=== PATIENT | female | born 1955 | race Caucasian/White ===

== ENCOUNTER 2016-10-15 17:24 | Emergency (ER) | payer OTHER ==
[~2016-10-15] VITALS: Ht 175.3 cm; Wt 63.6 kg
[~2016-10-15 17:24] MED LIST: OXYC1TAB24 PO; OXYC5TAB72 PO
[2016-10-15 17:28] VITALS: BP 132/83; PULSE 100; RESP 20; O2SAT 98
--- NOTE | 2016-10-15 20:57 | ED.REPORT ---
HPI-Extremity Problem Lower Date of Service Oct 15, 2016 ED Provider: Dr. Augustine 61 year old female presents with sharp anterior R hip pain for 4 weeks. Pt denies any known injury. The pain is constant but worse with movement. The pain is also worse in the cold weather. She has been using gabapentin and Ibuprofen with minimal relief. Pt denies N/V/D and any other symptoms. Pt has an appointment Nov [address] Biggs for this. Pt was seen at urgent care for this 09/18/16 which showed no acute disease. Nursing Notes Stated Complaint: RIGHT HIP PAIN Chief Complaint: Extremity Trauma Nursing Notes Reviewed: Yes Allergies: Coded Allergies: acetaminophen (Verified Allergy, Unknown, RASH, 01/19/16) hydrocodone (Verified Allergy, Unknown, RASH, 01/19/16) Scheduled PRN oxyCODONE (oxyCODONE) 5 Mg Tablet 5 MG PO Q4H PRN PRN For Pain oxyCODONE-Acetaminophen 5-325 mg (oxyCODONE-Acetaminophen 5-325 mg) 1 Each Tablet 1-2 TAB PO Q6H PRN PRN For Pain oxyCODONE-Acetaminophen 5-325 mg (oxyCODONE-Acetaminophen 5-325 mg) 1 Each Tablet 1 TAB PO Q6H PRN PRN For Pain General Time Seen by MD: 20:56 Chief Complaint Other (R hip pain) Hx Obtained From: Patient Arrived By: Walk-in Onset Occurred: More than a week ago... (4 weeks) Symptom Duration: Since onset Location: : Hip right Quality: Painful Severity: Current: Moderate Associated with: Denies: Unable to bear weight, Unable to move joint, Unable to walk Exacerbated by: Movement Recent Healthcare: Recent doctor visit Past Medical History Past Medical History Notes: Urgent Care visits x2 07/21 and 07/24/2015 for same complaint, records requested Past Medical History Kidney stones Admit for severe pneumonia 2004 HTN Migraines Acute mono Past Surgical History Hysterectomy 1991 Tonsillectomy at age 31 Kidney stone removal 94, 99, 1999 Laparoscopic cholecystectomy Family History Noncontributory Smoking History Former Smoker Social History Alcohol Use: "Social" Other Social History: Good social support, , Local resident Ambulatory Status Independent Review of Systems Basic Review of Systems Eyes: Vision NL, No discharge ENT: Hearing NL, No pain, No nasal congestion, No pharyngeal pain Respiratory: No shortness of breath, No cough, No wheeze Cardiovascular: No chest pain, No dyspnea on exertion, No orthopnea, No parox noct dyspnea, No palpitations Psychiatric: Normal thought content Constitutional: Denies: Chills, Fever Musculoskeletal: Reports: Joint pain, Denies: Extremity pain, Joint swelling, Neck pain Skin: Denies Diaphoresis, Denies Rash Neurologic: Denies: Change LOC, Numbness, Problem walking Complete sys rev & neg: except as marked. Physical Exam Initial Vital Signs Vital Signs (First) Date Time Temp Pulse Resp B/P Pulse Ox O2 Delivery O2 Flow Rate FiO2 10/15/16 17:28 36.7 100 20 132/83 98 Room Air Initial VS: Reviewed, Vital signs abnormal General/Constitutional: Well-developed, Well-nourished Head / Eyes: Atraumatic, Normocephalic, PERRL ENT: Conjunctiva normal, No scleral icterus Neck: Full range of motion Respiratory: No respiratory distress Skin: Warm, Dry, No cyanosis Neurologic: Alert, Oriented, Nonfocal Psychiatric: Mood/affect normal, Behavior normal, Normal thought content Lower Extremity / Pelvis / MS: Atraumatic, Full range of motion, No erythema, Neurologic intact, Vascular intact (Good DP pulses), No edema Pain with abduction. Good cap refill. No masses. Re-Eval/Medical Decision Med Decision/Clinical Course The patient has right hip pain and was told she has arthritis however her x-ray does not show any significant arthritis. Her examination is more consistent with a groin strain. Differential diagnoses considered were osteoarthritis, septic arthritis, groin pull, or other intra-articular process. This is a chronic problem and patient has follow-up with her primary care physician. Source of Hx: Old records (old imaging reviewed. ) Re-Evaluation/Progress : Time of Eval: 22:03 Re-Evaluation/Progress Note: Discussed plan for discharge and follow up. All questions addressed. Counseled Regarding: Diagnosis, Need for follow-up, When/why to return to ED Discharge & Departure Impression: Primary Impression: Right groin pain Disposition: Home Discharge Condition All VS Reviewed: Yes Condition: Improved Additional Instructions: Activity as tolerated by your pain. You should call your doctor tomorrow to see if you can get a sooner appointment. You need to see your doctor for future pain management. For pain take Ibuprofen as directed. For severe pain, take Percocet as directed. Use the pain medication sparingly. Referrals: Deniz Biggs MD (PCP) Scribe Attestation Portions of this note were transcribed by Khadijah Cruz. I, (Dr. Augustine) personally performed the history, physical exam and medical decision-making; I reviewed and confirmed the accuracy of the information in the transcribed note. Signed by: Khadijah Cruz. 10/15/2016, 0880 copies to: Deniz Biggs MD, Jena M MD Oct 15, 2016 20:57 Khadijah Crzu Oct 15, 2016 21:57
[2016-10-15] MEDS ORDERED: OXYC1TAB24 PO (21:55)
[2016-10-15] MEDS ORDERED: HYDROmorphone 0.5 mg/0.5 mL iSecure Syringe IM ONE (21:55)
[2016-10-15 22:07] VITALS: BP 120/63; PULSE 84; RESP 20; O2SAT 98
== END 2016-10-15 22:07 | disposition home or self-care (01) ==
LOC: SED 17:24
DX: R10.31 Right lower quadrant pain (principal); I10 Essential (primary) hypertension; Z87.442 Personal history of urinary calculi; Z87.01 Personal history of pneumonia (recurrent); Z90.49 Acquired absence of other specified parts of digestive tract; Z87.891 Personal history of nicotine dependence; Z88.6 Allergy status to analgesic agent; Z88.5 Allergy status to narcotic agent
CPT/HCPCS: 96372; 99283; J1170

== ENCOUNTER 2016-11-26 19:33 | Emergency (ER) | payer OTHER ==
[~2016-11-26] VITALS: Ht 175.3 cm; Wt 63.6 kg
[2016-11-26 19:42] VITALS: BP 140/85; PULSE 76; RESP 15; O2SAT 100
--- NOTE | 2016-11-26 21:38 | ED.REPORT ---
HPI-General Illness Date of Service Nov 26, 2016 ED Provider: Ashok Pacheco Patient is a 61 year old female who presents to the ED, referred from urgent care for concern about abdominal aortic aneurysm. She was Complaining of severe back pain that radiates up onset 3 weeks ago that was exacerbated after bending over 2 days ago. She describes her pain as "grinding and popping". Associated symptoms include epigastric pain. She denies numbness, weakness, incontinence, nausea, vomiting, or any other symptoms. She has a history of kidney stones, but states that her pain does not feel like her prior kidney stones. Nursing Notes Stated Complaint: BACK PAIN Chief Complaint: Back Pain or Injury Nursing Notes Reviewed: Yes Allergies: Coded Allergies: hydrocodone (Verified Allergy, Unknown, RASH, 11/26/16) Scheduled PRN Methocarbamol (Robaxin-750) 750 Mg Tablet 1-2 TAB PO QID PRN PRN For Spasm oxyCODONE (oxyCODONE) 5 Mg Tablet 5 MG PO Q4H PRN PRN For Pain oxyCODONE-Acetaminophen 5-325 mg (oxyCODONE-Acetaminophen 5-325 mg) 1 Each Tablet 1-2 TAB PO Q6H PRN PRN For Pain oxyCODONE-Acetaminophen 5-325 mg (oxyCODONE-Acetaminophen 5-325 mg) 1 Each Tablet 1 TAB PO Q6H PRN PRN For Pain oxyCODONE-Acetaminophen 5-325 mg (oxyCODONE-Acetaminophen 5-325 mg) 1 Each Tablet 2 TAB PO Q6H PRN PRN For Pain General Time Seen by MD: 21:38 Chief Complaint Back pain Hx Obtained From: Patient Arrived By: Walk-in Past Medical History Past Medical History Notes: Urgent Care visits x2 07/21 and 07/24/2015 for same complaint, records requested Past Medical History Kidney stones Admit for severe pneumonia 2004 HTN Migraines Acute mono Reports: Cancer (Skin ) Past Surgical History Hysterectomy 1992 Tonsillectomy at age 31 Kidney stone removal x5 Laparoscopic cholecystectomy Bilateral oophorectomy foot fx with screw placed Family History Noncontributory Smoking History Former Smoker Social History Alcohol Use: "Social" Other Social History: Good social support, , Local resident Ambulatory Status Independent Review of Systems Full Review of Systems GI: Reports: Abdominal pain, Denies: Nausea, Vomiting Female: Denies: Incontinence Musculoskeletal: Reports: Back pain Neurologic: Denies: Numbness, Weakness Complete sys rev & neg: except as marked. Physical Exam Vital Signs Vital Signs Date Time Temp Pulse Resp B/P Pulse Ox O2 Delivery O2 Flow Rate FiO2 11/26/16 19:42 36.1 76 15 140/85 100 Room Air General/Constitutional: Well-developed, Well-nourished Head / Eyes: Atraumatic, Normocephalic Respiratory: Breath sounds normal, Clear to auscultation, No respiratory distress Cardiovascular: Regular rate & rhythm, Heart sounds normal Skin: Warm, Dry Neurologic: Alert, Oriented, Nonfocal Psychiatric: Mood/affect normal, Behavior normal, Normal thought content Abdomen: No palpable mass Tenderness/Guarding/Rebound: Positive: Tender epigastric Back: Atraumatic jelly filter tender, guarded, not moving well, spasm perispinal muscles Interpretation & Diagnostics X-Ray Interpretation Xray Interpretation: Mild DJD Study Performed: Throacic Spine Interpretation / Wet Read by: Interpret - ED physician US Abdominal Aorta IMPRESSION: Suspect mild left hydronephrosis, but cannot entirely rule out left parapelvic cysts. No AAA. Status post cholecystectomy. Exam Performed by: Allied health pract Exam Interpreted by: Radiologist Re-Eval/Medical Decision Med Decision/Clinical Course 61-year-old female with thoracic back pain and appears to be musculoskeletal in nature. She has no radiculopathy symptoms. She was referred here out of concern for abdominal aortic aneurysm. Ultrasound was obtained on that basis and no aneurysm found. Her T spines are notable for some degenerative disease but no significant findings. She is discharged home with Percocet, Robaxin, and planned follow up with PCP. Time of Eval: 23:15 Patient Status: Condition improved Re-Evaluation/Progress Note: Discussed imaging results and plan for discharge with close follow up. Patient understands and agrees with plan. All questions addressed at this time. Counseled Regarding: Diagnosis, Lab results, Need for follow-up, When/why to return to ED Discharge & Departure Shift Change Sign-Out Response to Therapy: Improved Primary Impression: Strain of thoracic region Additional Impression: Back pain Disposition: Home Discharge Condition All VS Reviewed: Yes Condition: Improved Patient Instructions: Acute Low Back Pain (ED), Low Back Strain (ED) Additional Instructions: Heat, rest, avoid bending and lifting. Close attention to posture and stay upright. Do not bend over even to hot die picker a light objects. Continue her Celebrex. You may add Robaxin 1-2 tablets four times daily for muscle relaxation. You may add tramadol two tablets four times daily if needed additionally for pain. Follow-up with your doctor in the office. Return if any immediate issues. Referrals: Deniz Biggs MD (PCP) Scribe Attestation Portions of this note were transcribed by Jenny Delatorre. I, Dr. Pulido personally performed the history, physical exam and medical decision-making; I reviewed and confirmed the accuracy of the information in the transcribed note. Signed by: Jenny Delatorre 11/26/16, 1125 copies to: Deniz Biggs MD, Christopher W MD Nov 26, 2016 21:38 JENNY DELATORRE Nov 26, 2016 22:04
[2016-11-26] MEDS ORDERED: Ketorolac 30 mg/mL 2 mL Inj IM ONE (23:00)
[2016-11-26] MEDS ORDERED: METH-313 PO (23:34)
[2016-11-26] MEDS ORDERED: TRAM50TA2 PO (23:34)
[2016-11-26] MEDS ORDERED: OXYC1TAB24 PO (23:38)
--- NOTE | 2016-11-27 10:16 | DRSVH ---
PROCEDURE: X-RAY THORACIC SPINE, 2 VIEWS INDICATIONS: pain thoracic spine TECHNIQUE: 3 views of the thoracic spine were acquired. COMPARISON: None. FINDINGS: Bones: No fractures or dislocations. No suspicious bony lesions. 12 pairs of ribs are noted, and a ppear intact where visualized. Soft tissues: No paravertebral stripe thickening. IMPRESSION: 1. Mild multilevel cervicothoracic disc degeneration. Dictated by: Harjeet Land Colleen Interpreted: Jamal Thompson MD on 11/27/2016 at 9:16 Transcribed by: NEIL on 11/27/2016 at 10:15 Approved by: Paras Thompson M.D. on 11/27/2016 at 16:21
--- NOTE | 2016-11-27 10:18 | DRSVH ---
PROCEDURE: US ABDOMEN INDICATIONS: epigastric pain, ?AAA TECHNIQUE: Real-time scanning was performed of the abdominal and retroperitoneal organs, with image documentatio n. COMPARISON: None. FINDINGS: Liver length: 16.09 cm CHD: 2 mm CBD: 5.60 mm Spleen length: 8.96 cm Right kidney length: 12.89 cm Left kidney length: 10.63 cm Aorta(Proximal): 2.51 cm Aorta(Mid): 1.69 cm, 1.81 cm Aorta(Distal): 1.76 cm RCIA: 1.00 cm LCIA: 9.20 mm Liver: Liver is normal in size and homogeneous in echotexture. Gallbladder: Absent. Biliary ducts: Intrahepatic bile ducts are non-dilated. Extrahepatic bile duct caliber is normal. Normal is 6-7 mm or less in diameter, or 10 mm or less post-cholecystectomy. Pancreas: Visualized portions of the pancreas are sonographically normal. Spleen: Spleen is normal in size and homogeneous in echotexture. Kidneys: Kidneys are normal in size and echotexture. No hydronephrosis or nephrolithiasis. No adilson d masses. Several peripelvic cysts while the left kidney largest measuring roughly 16 mm Aorta: Visualized aorta is normal in caliber at less than 3 cm. Iliacs: Proximal common iliac arteries are normal in caliber at less than 2.5 cm. IVC: Intrahepatic inferior vena cava is patent. Miscellaneous: No free abdominal fluid. IMPRESSION: Left renal parapelvic cyst present and no source for epigastric pain identified. Dictated by: Harjeet MEDRANO Interpreted: Jamal Thompson MD on 11/27/2016 at 10:16 Transcribed by: NEIL on 11/27/2016 at 10:18 Approved by: Paras Thompson M.D. on 11/27/2016 at 16:21
== END 2016-11-26 23:47 | disposition home or self-care (01) ==
LOC: SED 19:33
DX: S29.012A Strain of muscle and tendon of back wall of thorax, initial encounter (principal); I10 Essential (primary) hypertension; Z87.891 Personal history of nicotine dependence; X50.1XXA Overexertion from prolonged static or awkward postures, initial encounter; Y93.89 Activity, other specified; Y99.8 Other external cause status; Y92.9 Unspecified place or not applicable; Z88.5 Allergy status to narcotic agent
CPT/HCPCS: 72070; 76700; 96372; 99284; J1885

== ENCOUNTER 2016-12-15 18:01 | Emergency (ER) | payer OTHER ==
[~2016-12-15] VITALS: Ht 175.3 cm; Wt 62.3 kg
[~2016-12-15 18:01] MED LIST changes: +METH-313 PO
[2016-12-15 18:04] VITALS: BP 139/89; PULSE 104; RESP 18; O2SAT 98
--- NOTE | 2016-12-15 19:01 | DRSVH ---
PROCEDURE: X-RAY RIGHT WRIST COMPLETE, MINIMUM THREE VIEWS ([id number]) INDICATIONS: pain/fall TECHNIQUE: 4 views of the wrist were acquired. COMPARISON: None. FINDINGS: Bones: No fractures or dislocations. No suspicious bony lesions. Joint space narrowing and periart icular osteophyte formation at the scaphotrapezial and first carpometacarpal joints. Scaphoid view: Negative Soft tissues: No suspicious soft tissue calcifications. IMPRESSION: No acute fracture. No osseous lesion. If clinical suspicion and/or symptoms persist, fur ther assessment with repeat plainfilms, or advanced imaging (e.g., CT, MRI, or bone scan) may be help ful for further assessment. Dictated by: Katiana Saxena M.D. on 12/15/2016 at 18:59 Approved by: Katiana Saxena M.D. on 12/15/2016 at 18:59
--- NOTE | 2016-12-15 20:11 | ED.REPORT ---
HPI-Extremity Problem Upper Date of Service Dec 15, 2016 ED Provider: Doc,Ed MD A 61 year old, left-handed, female with a history of arthritis and HTN presents to the ED complaining of pain in her right wrist onset earlier this evening after she fell on the hand while carrying groceries through her garage. Pain is concentrated in heel of hand and in right thumb. She reports that it does not feel like she broke her her hand. She denies ever injuring her right hand in the past. She also reports a minor injury to her drew bone that she put a bandage on. The patient has only taken Tylenol for her hand. She drove herself to the ED. Her is temporally in [place] for family event. Nursing Notes Stated Complaint: FELL , RT WRIST PAIN Chief Complaint: Extremity Trauma Nursing Notes Reviewed: Yes ([facility] not reconciled) Allergies: Coded Allergies: hydrocodone (Verified Allergy, Unknown, RASH, 12/15/16) Scheduled PRN Methocarbamol (Robaxin-750) 750 Mg Tablet 1-2 TAB PO QID PRN PRN For Spasm oxyCODONE (oxyCODONE) 5 Mg Tablet 5 MG PO Q4H PRN PRN For Pain oxyCODONE-Acetaminophen 5-325 mg (oxyCODONE-Acetaminophen 5-325 mg) 1 Each Tablet 1-2 TAB PO Q6H PRN PRN For Pain oxyCODONE-Acetaminophen 5-325 mg (oxyCODONE-Acetaminophen 5-325 mg) 1 Each Tablet 1 TAB PO Q6H PRN PRN For Pain oxyCODONE-Acetaminophen 5-325 mg (oxyCODONE-Acetaminophen 5-325 mg) 1 Each Tablet 2 TAB PO Q6H PRN PRN For Pain oxyCODONE-Acetaminophen 5-325 mg (oxyCODONE-Acetaminophen 5-325 mg) 1 Each Tablet 1 TAB PO BID PRN PRN For Pain General Time Seen by MD: 20:10 Chief Complaint Other (Right hand injury) Hx Obtained From: Patient Arrived By: Walk-in Onset Occurred: 1 - 4 hours ago Symptom Duration: Since onset Location: : Wrist right Severity: Current: Moderate Severity: Maximum: Moderate Recent Healthcare: Recent doctor visit Similar Sx Previous: No Past Medical History Past Medical History Notes: MAL records reviewed 12/15/16 and indicate a variety of narcotics from several different providers in recent months. I recommend reviewal. Past Medical History Kidney stones Admit for severe pneumonia 2004 HTN Migraines ho mononucleosis arthritis Reports: Cancer Past Surgical History Hysterectomy 1992 Tonsillectomy at age 31 Kidney stone removal x5 Laparoscopic cholecystectomy Bilateral oophorectomy foot fx with screw placed Family History Noncontributory Smoking History Former Smoker Social History Alcohol Use: "Social" Other Social History: Good social support, , Local resident Ambulatory Status Independent Review of Systems Review of Systems Note: Minor injury to drew. Constitutional: Denies: Fever Musculoskeletal: Reports: Extremity pain (Right wrist and right thumb.) Complete sys rev & neg: except as marked. Respiratory: Denies: Non-productive cough Physical Exam Initial Vital Signs Vital Signs (First) Date Time Temp Pulse Resp B/P Pulse Ox O2 Delivery O2 Flow Rate FiO2 12/15/16 18:04 36.4 104 18 139/89 98 Room Air Initial VS: Reviewed, Vital signs abnormal General/Constitutional: Awake, Alert Neck: Atraumatic, Full range of motion Respiratory / Chest: Atraumatic, Breath sounds NL, Breath sounds = bilat, No respiratory distress, No rales, No rhonchi, No wheezing Cardiovascular: Heart rate NL, Regular rhythm, Heart sounds NL Elbow is normal Tenderness present everywhere in right wrist. No local spot tenderness, no swelling, no ecchymosis, good pulses. Skin: Atraumatic, Color NL, No rash, Warm, Dry Neurologic: Oriented X3, Speech NL Head / Eyes: Atraumatic, Normocephalic, PERRL, EOMI ENT: Atraumatic, Mucous membranes moist Abdomen: Atraumatic, No guarding, No rebound Back: Atraumatic, Full range of motion Lower Extremity / Pelvis / MS: Atraumatic, Full range of motion Interpretation & Diagnostics X-Ray Interpretation Xray Interpretation: Right Wrist XRay IMPRESSION: No acute fracture. No osseous lesion. If clinical suspicion and/or symptoms persist, further assessment with repeat plainfilms, or advanced imaging (e.g., CT, MRI, or bone scan) may be helpful for further assessment. Dictated by: Katiana Saxena M.D. on 12/15/2016 at 18:59 Approved by: Katiana Saxena M.D. on 12/15/2016 at 18:59 X-Ray Ordered: Wrist right Interpretation / Wet Read by: Interpret - Radiologist Re-Eval/Medical Decision Med Decision/Clinical Course This is a 61-year-old who is left-hand dominant who reports a slip and fall onto the right wrist. She presents complaining of diffuse soreness everywhere, it is not localized, but "does not think it is broken". She reports no other significant injuries. She did not hit her head. She reports it was a mechanical slip and she was carrying groceries, and there were no antecedent symptoms. She denies previous right wrist injury. She has normal vitals,'s clinic well-appearing. On exam she has tenderness everywhere around the wrist-it is not localized to any particular portion, but there is no visible swelling, and she has preserved range of motion. Elbow exam is normal. She has no anatomical snuffbox tenderness. There are no open wounds, no abrasions, no visible ecchymosis. She has a Good radial pulse. No other traumatic injuries are identified. Plain radiographs are negative. Her discomfort she is placed in a cock-up splint. I discharged him ibuprofen. I have ultimately discharged with #6 oxycodone, but will comment that reviewed her MAL profile indicates she is no variety of narcotics in recent months from what appears to be potential variety of providers. Routine precautions and discharge instructions were reviewed. Source of Hx: Old records Re-Evaluation/Progress : Time of Eval: 20:10 Re-Evaluation/Progress Note: Rechecked patient, explained test results, diagnosis, and plan for discharge. Patient understands and agrees with the plan. All questions addressed. Counseled Regarding: Diagnosis, Lab results, Need for follow-up, When/why to return to ED Discharge & Departure Impression: Primary Impression: Right wrist sprain Encounter type: initial encounter Qualified Code: S63.501A - Unspecified sprain of right wrist, initial encounter Disposition: Home Discharge Condition All VS Reviewed: Yes Condition: Improved Additional Instructions: 1. No fractures were appreciated on x-ray of the wrist. 2. Use the splint for comfort if needed-remove the splint as soon as tolerated. 3. Take ibuprofen 400-800 mg 3 times a day with food for pain. 4. If absolutely needed take oxycodone/APAP 5/325 1 tab up to twice a day for the next 1-2 days. NOTE: This medication contains a narcotic and causes drowsiness. NO driving for at least 4 hours after taking. 5. Follow up with Dr. Biggs next week if not clearly improved. Referrals: Deniz Biggs MD (PCP) Scribe Attestation Portions of this note were transcribed by Raji Medley. I, Dr. Coreas, personally performed the history, physical exam and medical decision-making; I reviewed and confirmed the accuracy of the information in the transcribed note. Signed by Raji Villa, 12/15/162056. copies to: Deniz Biggs MD, Matthew F MD Dec 15, 2016 20:11 Raji Medley Dec 15, 2016 20:26
[2016-12-15] MEDS ORDERED: OXYC1TAB24 PO (20:22)
[2016-12-15 20:32] VITALS: BP 128/85; PULSE 88; RESP 16; O2SAT 99
== END 2016-12-15 20:30 | disposition home or self-care (01) ==
LOC: SED 18:01
DX: S63.501A Unspecified sprain of right wrist, initial encounter (principal); W01.0XXA Fall on same level from slipping, tripping and stumbling without subsequent striking against object, initial encounter; Y93.89 Activity, other specified; Y92.015 Private garage of single-family (private) house as the place of occurrence of the external cause; Y99.8 Other external cause status; I10 Essential (primary) hypertension; Z87.891 Personal history of nicotine dependence; Z88.5 Allergy status to narcotic agent

== ENCOUNTER 2016-12-24 23:24 | Emergency (ER) | payer OTHER ==
[~2016-12-24] VITALS: Ht 175.3 cm; Wt 60.9 kg
[2016-12-24 23:34] VITALS: BP 154/93; PULSE 88; RESP 18; O2SAT 97
--- NOTE | 2016-12-25 00:15 | ED.REPORT ---
HPI-Abd Pain F 40 and Over Date of Service Dec 25, 2016 ED Provider: Uri Coreas MD A 61 year old female with a history of kidney stones, HTN, migraines, arthritis , and frequent ED visits presenting to the department complaining of bilateral flank pain that began 6 weeks ago. Described as intermittent stabbing pain with radiation to the abdomen. Pt seen in the [facility] emergency department earlier today with similar presentation, had a workup including labs and CT imaging, and was discharged with direction for urology follow up. Reports fever , chills, headache, dysuria, hematuria, nausea, vomiting, urinary urgency and frequency. Denies constipation, diarrhea, cough, or shortness of breath. She has an appointment with her PCP, Dr. Biggs this week. Nursing Notes Stated Complaint: FLANK PAIN Chief Complaint: Female Abdominal Pain Nursing Notes Reviewed: Yes (S.N. Safe&Software not reconciled) Allergies: Coded Allergies: hydrocodone (Verified Allergy, Unknown, RASH, 12/15/16) Scheduled PRN Methocarbamol (Robaxin-750) 750 Mg Tablet 1-2 TAB PO QID PRN PRN For Spasm oxyCODONE (oxyCODONE) 5 Mg Tablet 5 MG PO Q4H PRN PRN For Pain oxyCODONE-Acetaminophen 5-325 mg (oxyCODONE-Acetaminophen 5-325 mg) 1 Each Tablet 1-2 TAB PO Q6H PRN PRN For Pain oxyCODONE-Acetaminophen 5-325 mg (oxyCODONE-Acetaminophen 5-325 mg) 1 Each Tablet 1 TAB PO Q6H PRN PRN For Pain oxyCODONE-Acetaminophen 5-325 mg (oxyCODONE-Acetaminophen 5-325 mg) 1 Each Tablet 2 TAB PO Q6H PRN PRN For Pain oxyCODONE-Acetaminophen 5-325 mg (oxyCODONE-Acetaminophen 5-325 mg) 1 Each Tablet 1 TAB PO BID PRN PRN For Pain oxyCODONE-Acetaminophen 5-325 mg (oxyCODONE-Acetaminophen 5-325 mg) 1 Each Tablet 1-2 TAB PO Q6H PRN PRN For Pain General Time Seen by : 00:11 Chief Complaint Other Hx Obtained From: Patient Arrived By: Walk-in Sudden in Onset?: Yes Onset Occurred: Yesterday Symptom Duration: Since onset Severity: Current: Moderate Pertinent Negative: Pt denies other symptoms Recent Healthcare: Recent doctor visit Similar Sx Previous: No Past Medical History Past Medical History Notes: MAL records reviewed 12/24/16 and indicate a variety of narcotics from several different providers in recent months. I recommend reviewal. Patient just left [facility] after being declined narcotics Seen in [facility] ED 12/15 for wrist pain Past Medical History ho Kidney stones (just had CT at [facility] this month, no intraureteral stones) Admit for severe pneumonia 2004 HTN Migraines ho mononucleosis arthritis Reports: Cancer Past Surgical History Hysterectomy 1992 Tonsillectomy at age 31 Kidney stone removal x5 Laparoscopic cholecystectomy Bilateral oophorectomy foot fx with screw placed Family History Noncontributory Smoking History Former Smoker Social History Alcohol Use: "Social" Other Social History: Good social support, , Local resident Ambulatory Status Independent Review of Systems Constitutional: Reports: Chills, Fever Respiratory: Denies: Non-productive cough, Shortness of breath GI: Reports: Nausea, Denies: Abdominal pain, Diarrhea, Vomiting Female: Reports: Dysuria, Flank pain, Hematuria, Urinary frequency, Urinary urgency Complete sys rev & neg: except as marked. Physical Exam Vital Signs Vital Signs (First) Date Time Temp Pulse Resp B/P Pulse Ox O2 Delivery O2 Flow Rate FiO2 12/24/16 23:34 37.2 88 18 154/93 97 Room Air Initial VS: Reviewed, Vital signs normal Head / Eyes: Atraumatic, Normocephalic, PERRL ENT: Mucous membranes moist, Conjunctiva normal, No scleral icterus Neck: Supple, Non-tender, Full range of motion Extremities: Vascular intact Skin: Warm, Dry, No cyanosis Neurologic: Alert, Oriented, Nonfocal General/Constitutional: Awake, Alert Respiratory / Chest: Breath sounds NL, Breath sounds = bilat, No respiratory distress, No rales, No rhonchi, No wheezing, No stridor Cardiovascular: Heart rate NL, Regular rhythm, Heart sounds NL, Peripheral circulation NL Abdomen: Soft, Non-tender, No guarding, No rebound, BS normoactive Back: No midline vertebral tend, No paraspinal tenderness Flank / Spine / Paraspinal: Positive: Flank tender bilateral Interpretation & Diagnostics Interpretation & Diagnostics: CT KUB at [facility] 12/19/16 - bilateral nonobstructing nephrolithiasis, but no evidence of ureterolithiasis or other pathology CBC tonight 12/24/2016: WBC 12.5, platelets 448, hematocrit 37.1 CMP glucose 13, anion 21, sodium 140, potassium 3.9, chloride 104, CO2 29, creatinine 0.91, LFTs normal UA 2+ blood trace leuks otherwise -21 red cells per high-powered field CT ABD/PELVIS from [facility] on 12/25/15 Impression: 1. Nonobstructing bilateral nephroliths. No evidence of ureteral calcification nor obstruction. 2. Normal appendix. Radiologist: Katiana Saxena MD Lab Results Interpretation Test 12/25/16 00:17 Hold Urine Received (Received) Re-Eval/Medical Decision Med Decision/Clinical Course This is a 61-year-old female presents complaining of bilateral flank pain. She reports a previous history of kidney stones, reports several stone extractions and surgical intervention in years past. Over the past 6 weeks she has had intermittent and increasing amounts of pain-and has recently been seen at [place]. She had a CT obtained at [place] on December 19 revealed nephrolithiasis, but no ureterolithiasis. She received #20 oxycodone on the as well. She been seen by me on the fourth of this month in the emergency department here at [facility] and received #6 oxycodone injury. She was seen [facility] which declined to provide her any pain medicines-and so she came over to [facility]. Claims she does have an appointment with her primary care physician on Saturday. She claims that she is taking Celebrex daily so cannot take additional Toradol or ibuprofen. She talks about having a fever daily for greater than 2-3 weeks-but then states the fevers about 99-she is afebrile here the temperature murmur,'s afebrile [facility] averse primary earlier today. She had labs and a urine obtained earlier [facility], and those records were obtained. He did reveal a trace leukocytosis for white count 12.5, and the urine was notable for hematuria- though it did not have overt markers of infection. Additionally her CT scan from the was reviewed The patient does not appear toxic or acutely ill. I am not finding indication that repeat imaging- as this reportedly would be the third CT scan in a matter of weeks in this patient who does not appear acutely toxic or ill. I am also not finding indication or repeat the laboratory studies. Again the patient is not febrile, she does not appear septic, she does not appear toxic. I reviewed with the patient her MAL report which indicates a multitude of controlled sentences prescribed by 13 different providers multiple times a month over the past several months. (Please note it lists a total number of medications or greater 570, but this appears greatly inflated by the use of a cough syrup measured in MLs which are dispropoportionate. However, even taking this into account, there have been a number different providers, number different prescriptions-and the whole visit has a number red flags for the possibility of controlled substance abuse. The patient however does have known stones, urinary UGH is interpreted as positive for hematuria with red cells. The patient already has an appointment in 36 hours with her PCP. So in this situation where do not have all the information, although I have explained my concerns to the patient and her partner-I have gone ahead and written for a prescription of a total of 6 Percocet which should get her to her primary care physician. Carefully explained that I do not think that emergent murmur will be providing further controlled substances in the absence of objective, appropriate, medical indications with the direction of her primary care physician, and it is really important that her primary care physician going forward the aware of, and manage any and all controlled substances for the patient. The patient acknowledges this, and is discharged in stable condition. Routine precautions. The patient remains a little bit flabbergasted and told she has been told to go to urgent care and emergency Department if her PCP is not available-and I have indicated we are still available happy to see and evaluate her, and we will reevaluate her independently on each visit-but that does not mean that controlled substances should be provided on a frequent, recurrent basis-and at the use of such medications should be limited to appropriate medical indications. Source of Hx: Old records Differential Diagnosis: Positive: Urolithiasis, Negative: Abdominal aortic aneurysm, Acute abdominal pain, Appendicitis, Bowel obstruction, C. diff colitis, Cholangitis, Cholecystitis, Cholelithiasis, Ectopic preg ruptured, Ectopic , Endometriosis, Gun shot wound abdomen , Intrauterine , Mesenteric adenitis, Pancreatitis, Peritonitis, Pyelonephritis, Urinary tract infection Counseled Regarding: Diagnosis, Lab results, Need for follow-up Discharge & Departure Primary Impression: Flank pain Additional Impression: Hematuria Disposition: Home Discharge Condition All VS Reviewed: Yes Condition: Stable Additional Instructions: 1. We did not repeat the tests that you had performed earlier this evening at [facility], or the CT Scan that you had on the at [facility]. 2. As discussed, there is a concern regarding the amount and frequency of controlled substances you are received. According to the [facility] registry of controlled substances you have received multiple prescriptions from multiple providers (13 prescribers) multiple times a month and every month since August. 3. There needs to be a single provider monitoring your pain prescriptions. 4. Since your tests at [facility] do indicate blood in your urine I am prescribing enough pain medication to get to your appointment with Dr. Biggs on Saturday. Please understand that we will not be able to provide further controlled substances from the emergency deparment without a clear, objective and appropriate medical indication (e.g., fractured bone). 5. Drink plenty of fluids. 6. Discuss a urology referral as planned with Dr. Biggs. Referrals: Deniz Biggs MD (PCP) Scribe Attestation Portions of this note were transcribed by Gogo Escobar. I, Dr. Coreas personally performed the history, physical exam and medical decision-making; I reviewed and confirmed the accuracy of the information in the transcribed note. Signed by: josue Lopez. 12/24/2016, 03:00. copies to: Deniz Biggs MD, Matthew F MD Dec 25, 2016 00:15 GOGO ESCOBAR Dec 25, 2016 00:16
[2016-12-25] MEDS ORDERED: oxyCODONE-Acetamin 5-325 mg Tablet PO ONE (00:45)
[2016-12-25] MEDS ORDERED: OXYC1TAB24 PO (00:54)
[2016-12-25 00:59] VITALS: BP 148/90; PULSE 82; RESP 16; O2SAT 98
== END 2016-12-25 01:00 | disposition home or self-care (01) ==
LOC: SED 23:24
DX: R31.9 Hematuria, unspecified (principal); I10 Essential (primary) hypertension; Z87.891 Personal history of nicotine dependence; Z85.9 Personal history of malignant neoplasm, unspecified; Z87.442 Personal history of urinary calculi; Z87.01 Personal history of pneumonia (recurrent); Z98.890 Other specified postprocedural states; Z88.5 Allergy status to narcotic agent